=== PATIENT | male | born 1995 | race American Indian/Alaskan Native ===

== ENCOUNTER 2016-07-30 23:11 | Emergency (ER) | payer OTHER ==
[2016-07-31] MEDS ORDERED: NORCO 10/325 PO ONE (05:16)
[2016-07-31] MEDS ORDERED: FLEXERIL PO ONE (05:16)
--- NOTE | 2016-07-31 05:32 | Emergency Department Report ---
HPI - General Chief Complaint: Extremity Injury, Lower Time Seen by Provider: 07/31/16 04:47 - HPI HPI: Patient is a 21-year-old male who presents to ED complaining of right foot pain times today. 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 Patient states he is moderate throbbing, aching intermittent pain on foot since injury. Patient states minimal swelling of the foot. Patient states pain with weightbearing on the right foot He denies fevers/chills/nausea/vomiting/abdominal pain/chest pain/shortness of breath or any other problems. ED Past Medical Hx - Past Medical History Previous Medical History?: No - Surgical History Past Surgical History?: No - Social History Smoking Status: Never Smoker Substance Use Type: None - Medications Home Medications: Home Medications Medication Instructions Recorded Confirmed Last Taken Type Acetaminophen/Codeine [Tylenol 1 tab PO Q6H #10 tab 07/31/16 Unknown Rx /Codeine # 3 tab] Cyclobenzaprine [Flexeril] 10 mg PO QHS PRN #20 tablet 07/31/16 Unknown Rx Ibuprofen [Motrin] 800 mg PO Q8HR #28 tablet 07/31/16 Unknown Rx ED Review of Systems ROS: Stated complaint: RT FOOT INJURY Other details as noted in HPI Constitutional: denies: chills, fever Eyes: denies: eye pain, eye discharge, vision change ENT: denies: ear pain, throat pain Respiratory: denies: cough, shortness of breath, wheezing Cardiovascular: denies: chest pain, palpitations Endocrine: no symptoms reported Gastrointestinal: denies: abdominal pain, nausea, diarrhea Genitourinary: denies: urgency, dysuria Musculoskeletal: arthralgia, myalgia. denies: back pain, joint swelling Skin: denies: rash, lesions Neurological: denies: headache, weakness, paresthesias Psychiatric: denies: anxiety, depression Hematological/Lymphatic: denies: easy bleeding, easy bruising Physical Exam - Physical Exam Vital Signs: Vital Signs 07/30/16 23:44 Temperature 98.1 F Pulse Rate 75 Respiratory 20 Rate Blood Pressure 147/77 Blood Pressure 147/77 [Left] O2 Sat by Pulse 97 Oximetry Physical Exam: GENERAL: Alert and oriented x3, no apparent distress, Normal Gait, atraumatic. HEAD: Head is normocephalic and a-traumatic. NECK: Supple. Non edematous, No carotid bruits. No lymphadenopathy or thyromegaly. No C-spine tenderness LUNGS: Symetrical with respiration, No wheezing, no rales or crackles, CTAB. HEART: S1, S2 present, regular rate and rhythm without murmur, no rubs, no gallops. EXTREMITIES/MUSCULOSKELETAL: No cyanosis, clubbing, rash, lesions or edema. Full ROM bilaterally. Pedal Pulses 2+ bilaterally. LE and UE 5+ strength bilaterally, ankle joints intact bilaterally. Mild swelling to the anterior lateral aspect of the foot. Tenderness to palpation of the anterior lateral aspect of the foot. Pain with weightbearing. Non-edematous right ankle NEUROLOGIC: The patient is cooperative with no focal neurologic deficits. Cranial nerves II through XII are grossly intact. PSYCHIATRIC: Mood is congruent with affect, denies suicidal or homicidal ideations. SKIN: Warm and dry, No lesions, No ulceration or induration present. ED Course Vital Signs 07/30/16 23:44 Temperature 98.1 F Pulse Rate 75 Respiratory 20 Rate Blood Pressure 147/77 Blood Pressure 147/77 [Left] O2 Sat by Pulse 97 Oximetry ED Medical Decision Making - Medical Decision Making Patient is a 21-year-old male presents to ED with right foot sprain ED course: Patient received Flexeril and [place] in ED. X-ray of the foot ordered. X-ray shows no fracture no dislocation, normal x- ray findings Discuss all findings the patient. Discussed with patient to rest ice elevate his foot. Discuss rice protocols Discussed the patient will follow up with his primary care physician. Critical care attestation.: If time is entered above; I have spent that time in minutes in the direct care of this critically ill patient, excluding procedure time. ED Disposition Clinical Impression: Sprain of foot, right Qualifiers: Encounter type: initial encounter Qualified Code(s): S93.601A - Unspecified sprain of right foot, initial encounter Disposition: DISCHARGED TO HOME OR SELFCARE Is pt being admited?: No Does the pt Need Aspirin: No Condition: Stable Instructions: Foot Sprain (ED), Ankle Exercises (GEN), RICE Therapy (ED) Prescriptions: Cyclobenzaprine [Flexeril] 10 mg PO QHS PRN #20 tablet PRN Reason: Muscle Spasm Acetaminophen/Codeine [Tylenol /Codeine # 3 tab] 1 tab PO Q6H #10 tab Ibuprofen [Motrin] 800 mg PO Q8HR #28 tablet Referrals: PRIMARY CARE, [Primary Care Provider] - 3-5 Days [facility] [Outside] - 3-5 Days [facility] [Outside] - 3-5 Days [facility] [Outside] - 3-5 Days Forms: Work/School Release Form(ED), Accompanied Note Time of Disposition: 05:51
--- NOTE | 2016-07-31 05:34 | XRay Report ---
FINAL REPORT PROCEDURE: XR FOOT 2V RT TECHNIQUE: RIGHT foot radiographs, AP, lateral, and oblique views. CPT 49510 HISTORY: right foot injury COMPARISON: No prior studies are available for comparison. FINDINGS: Fracture (s) and/or Dislocation(s): None . Alignment: Normal . Joint space(s): Normal . Soft tissues: Normal . Bone mineralization: Normal . Foreign bodies: None . Calcaneal spurring: None . IMPRESSION: Normal Examination .
[2016-07-31 06:45] VITALS: BP 135/77
== END 2016-07-31 06:15 | disposition home or self-care (01) ==
LOC: ED 23:11
DX: S93.601A Unspecified sprain of right foot, initial encounter (principal); X58.XXXA Exposure to other specified factors, initial encounter; Y93.89 Activity, other specified; Y99.8 Other external cause status; Y92.89 Other specified places as the place of occurrence of the external cause
CPT/HCPCS: 99283